=== PATIENT | female | born 1930 | race Caucasian/White ===

== ENCOUNTER 2019-02-04 11:50 | Inpatient (IN) | payer OTHER ==
[2019-02-04 12:56] LABS: PLATELET COUNT 191 10^3/uL (150-400)
[2019-02-04] MEDS ORDERED: AZITHROMYCIN IV 500 MG in NS 250 ML IV ONE (13:31)
--- NOTE | 2019-02-04 13:31 | EDPHY ---
H & P Stated Complaint: cough /sob had PNA a month ago/weakness Time Seen by Provider: 02/04/19 12:56 HPI/ROS: CHIEF COMPLAINT: Cough, fever Limitations: Dementia HISTORY OF PRESENT ILLNESS: 88-year-old female with diabetes presents with cough and fever. 1 month ago she was diagnosed with influenza and took a course of Tamiflu. Subsequently she was diagnosed with pneumonia and received a course of antibiotics. She was feeling well until yesterday, when she developed a recurrent fever and cough. Associated with oxygen saturation 80% on room air. She uses oxygen as needed but usually her oxygen saturation is in the mid 90s. This morning she was too weak to get out of bed. She usually walks with a walker. REVIEW OF SYSTEMS: complete 10 point ROS reviewed and is negative except for the noted elements in the HPI - Personal History Current Tetanus Diphtheria and Acellular Pertussis (TDAP): Yes - Medical/Surgical History Hx Asthma: No Hx Chronic Respiratory Disease: No Hx Diabetes: Yes Hx Cardiac Disease: No Hx Renal Disease: No Hx Cirrhosis: No Hx Alcoholism: No Hx HIV/AIDS: No Hx Splenectomy or Spleen Trauma: No Other PMH: htn diabetes r hip fx hysterectomy kidney stones - Social History Smoking Status: Former smoker Additional Social History: Lives with daughter and son-in-law - Physical Exam Exam: General Appearance: Alert, pleasant, nontoxic-appearing Eyes: Pupils equal and round, no conjunctival pallor or injection ENT, Mouth: Mucous membranes moist Neck: Normal inspection Respiratory: Rales at the right base Cardiovascular: Regular rate and rhythm Gastrointestinal: Abdomen is soft and nontender Neurological: Alert, nonfocal exam Skin: Warm and dry Extremities: Bilateral pedal edema, healing abrasion left lower leg, with slight erythema surrounding, no tenderness in this area Psychiatric: Mood and affect normal Constitutional: Initial Vital Signs Temperature (C) 37.1 C 02/04/19 11:56 Heart Rate 76 02/04/19 11:56 Respiratory Rate 18 02/04/19 11:56 Blood Pressure 137/60 H 02/04/19 11:56 O2 Sat (%) 98 02/04/19 11:56 O2 Delivery Mode Nasal Cannula O2 (L/minute) 2 Allergies/Adverse Reactions: No Known Allergies Allergy (Unverified 02/04/19 11:55) Home Medications: Medication Instructions Recorded Atorvastatin Calcium [Lipitor 20 20 mg PO HS 02/04/19 mg (*)] Furosemide [Lasix 20 MG (*)] 10 mg PO DAILY PRN 02/04/19 Lisinopril [Zestril 5 mg (*)] 5 mg PO DAILY 02/04/19 amLODIPine BESYLATE [Norvasc 10 mg 10 mg PO DAILY 02/04/19 (*)] metFORMIN HCL [Glucophage 500 mg 500 mg PO BIDMEAL 02/04/19 (*)] Medical Decision Making - Diagnostics EKG Interpretation: EKG interpreted by me reveals normal sinus rhythm, rate 70, low voltage in the limb leads, prolonged QT interval, slight ST segment depression in the lateral leads. Interpretation: Abnormal EKG Imaging Results: Chest X-Ray 02/04/19 12:48 Impression: 1. Right-sided alveolar opacities may reflect pneumonia or less likely asymmetric pulmonary edema. 2. Cardiomegaly and pulmonary venous redistribution suggest congestive failure. Imaging: I viewed and interpreted images myself ED Course/Re-evaluation: This patient presents with cough, hypoxia and fever. Oxygen saturation 95% on 2 L by nasal cannula. Does not meet SIRS criteria. Chest x-ray reveals a right -sided infiltrate, consistent with pneumonia. Rocephin and Zithromax IV given after blood cultures were drawn. Initial lactate is normal. Likely superimposed CHF, BNP ordered. EKG reveals no evidence of ischemia or dysrhythmia. The hospitalist service was consulted for admission. BNP is greater than 9000, consistent with congestive heart failure. No diuretics given in ED. Main problem is pneumonia, and clinical history suggestive of dehydration. BP stable throughout, consider diuretics as inpt. Differential Diagnosis: Differential diagnosis includes though it is not limited to pneumonia, pneumothorax, pulmonary embolism, aortic dissection, pericarditis, acute coronary syndrome. - Data Points Laboratory Results: Laboratory Results 02/04/19 12:45 02/04/19 12:45 Microbiology Results: MICROBIOLOGY 02/04/19 13:25 Nasal, Sinus - Swab Respiratory Panel (PCR) - Final No Organism Detected By Pcr Medications Given: Albuterol (Proventil Neb) 3 ml IH Q2HRS PRN PRN Reason: Short of Breath/Dyspnea Stop: 08/03/19 13:50 Last Admin: 02/04/19 17:02 Dose: 3 ml Atorvastatin Calcium (Lipitor) 20 mg PO HS PENNIE Stop: 08/03/19 20:59 Last Admin: 02/04/19 20:11 Dose: 20 mg Enoxaparin Sodium (Lovenox) 40 mg SC DAILY [facility] Stop: 08/04/19 08:59 Last Admin: 02/05/19 09:23 Dose: 40 mg Furosemide (Lasix Injection) 20 mg IVP DAILY [facility] Stop: 08/04/19 08:59 Last Admin: 02/05/19 09:23 Dose: 20 mg Guaifenesin (Mucinex) 600 mg PO BID PENNIE Stop: 08/03/19 13:59 Last Admin: 02/05/19 09:23 Dose: 600 mg Azithromycin 500 mg/ Sodium (Chloride) 255 mls @ 255 mls/hr IV DAILY PENNIE PRN Reason: Protocol Stop: 03/07/19 08:59 Last Admin: 02/05/19 12:07 Dose: 255 mls Ceftriaxone Sodium/Dextrose (Rocephin 1 Gm (Premix)) 50 mls @ 100 mls/hr IV DAILY PENNIE PRN Reason: Protocol Stop: 03/07/19 08:59 Last Admin: 02/05/19 10:21 Dose: 50 mls Insulin Human Lispro (Humalog Lispro) 0 unit SC TIDMEAL PENNIE PRN Reason: Protocol Stop: 08/03/19 17:59 Last Admin: 02/05/19 17:36 Dose: Not Given Lisinopril (Zestril) 5 mg PO DAILY [facility] Stop: 08/04/19 08:59 Last Admin: 02/05/19 09:23 Dose: 5 mg Discontinued Medications Furosemide (Lasix Injection) 20 mg IVP ONCE ONE Stop: 02/04/19 16:12 Last Admin: 02/04/19 17:07 Dose: 20 mg Azithromycin 500 mg/ Sodium (Chloride) 255 mls @ 255 mls/hr IV EDNOW ONE PRN Reason: Protocol Stop: 02/04/19 14:30 Last Admin: 02/04/19 14:30 Dose: 255 mls Ceftriaxone Sodium/Dextrose (Rocephin 1 Gm (Premix)) 50 mls @ 100 mls/hr IV EDNOW ONE PRN Reason: Protocol Stop: 02/04/19 14:00 Last Admin: 02/04/19 13:46 Dose: 50 mls Potassium Chloride (Klor-Con) 10 - 40 meq PO ONCE ONE PRN Reason: Protocol Stop: 02/04/19 19:43 Last Admin: 02/04/19 20:11 Dose: 10 meq Departure - Departure Disposition: [facility] Acute Clinical Impression: Pneumonia Qualifiers: Pneumonia type: due to unspecified organism Laterality: right Lung location: unspecified part of lung Qualified Code(s): J18.9 - Pneumonia, unspecified organism Acute exacerbation of congestive heart failure Qualifiers: Heart failure type: unspecified Qualified Code(s): I50.9 - Heart failure, unspecified Condition: Fair
[2019-02-04] MEDS ORDERED: GUAIFENESIN/DM 10 ML UDCUP PO PRN (13:50)
[2019-02-04] MEDS ORDERED: BENZONATATE 100 MG CAP PO PRN (13:51)
[2019-02-04] MEDS ORDERED: ACETAMINOPHEN 325 MG TAB PO PRN (13:51)
[2019-02-04] MEDS ORDERED: ALBUTEROL 3 ML DEYVIAL IH PRN (13:51)
[2019-02-04] MEDS ORDERED: ONDANSETRON 4 MG/2 ML VIAL IVP PRN (13:51)
[2019-02-04] MEDS ORDERED: ONDANSETRON DISINTEGRATING 4 MG TAB PO PRN (13:51)
[2019-02-04] MEDS ORDERED: D50W 25 GM/50 ML SYR IVP PRN (13:59)
[2019-02-04] MEDS: AZITHROMYCIN IV 500 MG in NS 250 ML IV SCH (14:13)
--- NOTE | 2019-02-04 15:50 | ASMTCMCOM ---
CM Note CM Note Notes: Reviewed chart. Pt presented to the Emergency Department with cough, worsening shortness of breath, decreased oxygen saturation. Pt was diagnosed with Influenza and PNA approximately one month ago. History includes DM, HTN, right hip fx, hysterectomy and kidney stones. Pt is . Her dghtr Martine is her emergency contact. Pt to be admitted for further evaluation and treatment. Discharge needs remain unclear at this time. CM will continue to follow. Discharge Plan: To be determined Date Signed: 02/04/2019 03:47 PM Electronically Signed By:Alana Gilliland RN
[2019-02-04] MEDS ORDERED: FUROSEMIDE 20 MG/2 ML VIAL IVP ONE (16:11)
[2019-02-04] MEDS ORDERED: PROTOCOL POTASSIUM 1 DOSE MISC PRN (16:12)
--- NOTE | 2019-02-04 16:23 | PDGENHP ---
History and Physical - Chief Complaint cough, SOB - History of Present Illness 88 yo female with h/o hypertension and diabetes with recent influenza who was treated with atbx for PNA presents to ED with cough and SOB. She is not sure if she has had fevers. She does endorse orthopnea and PND as well as LE edema. She has no known h/o HF or coronary disease. She thinks she had influenza ~1 month ago, but cannot recall when she completed her atbx. She denies CP or pressure, but is quite SOB. In the ED, she received IV Ceftriaxone and Azithromycin due to concern for PNA on CXR, which also showed b/l pleural effusions R>L. She is admitted for further management. History Information - Allergies/Home Medication List Allergies/Adverse Reactions: No Known Allergies Allergy (Unverified 02/04/19 11:55) Home Medications: Atorvastatin Calcium [Lipitor 20 mg (*)] 20 mg PO HS 02/04/19 [Last Taken ] Furosemide [Lasix 20 MG (*)] 10 mg PO DAILY PRN 02/04/19 [Last Taken Unknown] Lisinopril [Zestril 5 mg (*)] 5 mg PO DAILY 02/04/19 [Last Taken 02/04/19] amLODIPine BESYLATE [Norvasc 10 mg (*)] 10 mg PO DAILY 02/04/19 [Last Taken 09/15] metFORMIN HCL [Glucophage 500 mg (*)] 500 mg PO BIDMEAL 02/04/19 [Last Taken 09/15 AM] I have personally reviewed and updated: family history, medical history, social history, surgical history - Past Medical History diabetes type 2, hypertension Additional medical history: kidney stones - Surgical History Reports: hysterectomy - Family History Positive for: non-pertinent - Social History Smoking Status: Former smoker Alcohol Use: None Drug Use: None Additional social history: Lives with daughter and son-in-law Review of Systems Review of Systems: ROS: 10pt was reviewed & negative except for what was stated in HPI & below Physical Exam Physical Exam: Temp Pulse Resp BP Pulse Ox 37.1 C 80 18 135/70 H 92 02/04/19 11:56 02/04/19 15:47 02/04/19 15:47 02/04/19 15:47 02/04/19 15:47 O2 (L/minute) 2 Constitutional: no apparent distress Eyes: PERRL Ears, Nose, Mouth, Throat: moist mucous membranes Cardiovascular: regular rate and rhythym, JVD Respiratory: no respiratory distress, other (bibasilar crackles) Gastrointestinal: normoactive bowel sounds, soft, non-tender abdomen Skin: warm Musculoskeletal: full muscle strength, other (2+ b/l LE pitting edema) Neurologic: AAOx3 Psychiatric: interacting appropriately, poor memory Lab Data & Imaging Review 02/04/19 12:45 02/04/19 12:45 WBC 11.25 10^3/uL (3.80-9.50) H 02/04/19 12:45 RBC 3.56 10^6/uL (4.18-5.33) L 02/04/19 12:45 Hgb 10.0 g/dL (12.6-16.3) L 02/04/19 12:45 Hct 32.7 % (38.0-47.0) L 02/04/19 12:45 MCV 91.9 fL (81.5-99.8) 02/04/19 12:45 MCH 28.1 pg (27.9-34.1) 02/04/19 12:45 MCHC 30.6 g/dL (32.4-36.7) L 02/04/19 12:45 RDW 16.6 % (11.5-15.2) H 02/04/19 12:45 Plt Count 191 10^3/uL (150-400) 02/04/19 12:45 MPV 10.5 fL (8.7-11.7) 02/04/19 12:45 Neut % (Auto) 80.5 % (39.3-74.2) H 02/04/19 12:45 Lymph % (Auto) 11.6 % (15.0-45.0) L 02/04/19 12:45 Dane % (Auto) 7.3 % (4.5-13.0) 02/04/19 12:45 Eos % (Auto) 0.0 % (0.6-7.6) L 02/04/19 12:45 Baso % (Auto) 0.3 % (0.3-1.7) 02/04/19 12:45 Nucleat RBC Rel Count 0.0 % (0.0-0.2) 02/04/19 12:45 Absolute Neuts (auto) 9.07 10^3/uL (1.70-6.50) H 02/04/19 12:45 Absolute Lymphs (auto) 1.30 10^3/uL (1.00-3.00) 02/04/19 12:45 Absolute Monos (auto) 0.82 10^3/uL (0.30-0.80) H 02/04/19 12:45 Absolute Eos (auto) 0.00 10^3/uL (0.03-0.40) L 02/04/19 12:45 Absolute Basos (auto) 0.03 10^3/uL (0.02-0.10) 02/04/19 12:45 Absolute Nucleated RBC 0.00 10^3/uL (0-0.01) 02/04/19 12:45 Immature Gran % 0.3 % (0.0-1.1) 02/04/19 12:45 Immature Gran # 0.03 10^3/uL (0.00-0.10) 02/04/19 12:45 VBG Lactic Acid 1.4 mmol/L (0.7-2.1) 02/04/19 12:45 Sodium 135 mEq/L (135-145) 02/04/19 12:45 Potassium 4.4 mEq/L (3.5-5.2) 02/04/19 12:45 Chloride 106 mEq/L (97-110) 02/04/19 12:45 Carbon Dioxide 22 mEq/l (22-31) 02/04/19 12:45 Anion Gap 7 mEq/L (6-14) 02/04/19 12:45 BUN 14 mg/dL (7-23) 02/04/19 12:45 Creatinine 0.9 mg/dL (0.6-1.0) 02/04/19 12:45 Estimated GFR 59 02/04/19 12:45 Glucose 137 mg/dL (70-100) H 02/04/19 12:45 Calcium 8.7 mg/dL (8.5-10.4) 02/04/19 12:45 NT-Pro-B Natriuret Pep 9410 pg/mL (0-450) H 02/04/19 12:45 Procalcitonin 0.41 ng/mL (0.02-0.10) H 02/04/19 12:45 Visualized and Interpreted Chest x-ray results: Yes Chest X-Ray results: other (b/l effusions and b/l infiltrate vs edema) Visualized and Interpreted EKG results: Yes EKG Interpretation: Positive for: normal sinsus rhythm, ST depression Assessment & Plan Assessment: AHRF - pt presents with visible increased respiratory effort, on 2 LPM. Suspect this is mostly secondary to acute HF with b/l effusions, BNP 9K, +JVD, and LE edema. However, noting recent influenza and possible infiltrate on CXR, along with elevated PCT, will also treat for CAP. -IV Lasix now, cont 20 mg IV daily, may need repeat dose tonight if doesn't diurese with low dose (lasix naive) -monitor I&O's, daily weights -telemetry -check echo and TSH -IV Ceftriaxone and Azithromycin for possible PNA -BCx's pending, send sputum culture Acute HF - no known h/o HF, note mild ST depression on EKG, CP free -diuresis as above -telemetry -Likely warrants BB and/or Prakash if BP tolerates, await echo -trend troponin. Pt clearly states she would NOT want cardiac intervention such as heart cath -prn EKG if CP recurs -check TSH and echo DM type 2 - bg 100's on arrival, hold MTF for now -SSI Hypertension - Hold Amlodipine as BP may not tolerate with diuresis (SBP 120 on arrival to floor) -Cont lisinopril with hold parameters -Lasix as above DVT PPLX - Lovenox Code status - discussed with pt, she clearly states she wishes to be DNR/DNI, which will be honored Dispo - admit to inpt, anticipate >48 hrs hospitalization for ongoing management of acute HF, possible PNA and hypoxemia.
[2019-02-04] MEDS: guaiFENesin 600 MG TAB.ER PO SCH ×2 (17:08→20:11)
[2019-02-04] MEDS: INSULIN LISPRO 100 UNIT/ML SC SCH (19:15)
[2019-02-04] MEDS ORDERED: POTASSIUM CL 10 MEQ TAB PO ONE (19:42)
[2019-02-04] MEDS: ATORVASTATIN CALCIUM 20 MG TAB PO SCH (20:11)
--- NOTE | 2019-02-04 20:58 | CPEKG ---
Test Reason : OPEN Blood Pressure : / mmHG Vent. Rate : 070 BPM Atrial Rate : 070 BPM P-R Int : 133 ms QRS Dur : 097 ms QT Int : 482 ms P-R-T Axes : 018 029 033 degrees QTc Int : 521 ms Sinus rhythm Low voltage, extremity leads Borderline ST depression, lateral leads Prolonged QT interval Confirmed by Chaparrita Broussard ([id number]) on 02/04/2019 8:58:39 PM Referred By: CHAPARRITA BROUSSARD Confirmed By:Chaparrita Broussard
[2019-02-05 05:14] LABS: PLATELET COUNT 172 10^3/uL (150-400)
[2019-02-05] MEDS: INSULIN LISPRO 100 UNIT/ML SC SCH ×3 (08:46→17:36)
--- NOTE | 2019-02-05 09:11 | PDMN ---
Medical Necessity Medical necessity: Pt meets inpt criteria per MD ordr and MCG M-190, Heart Failure, A-2 days. 88 y/o w/hx of HTN and diabetes w/ recent influenza admitted with AHRF likely due to HF w/ bilat pleural effusions R>L, BNP 9K, +JVD, and LE edema, also possible PNA, requiring 2-4 L O2, IV ABX's, IV Lasix, tele, bl cultures pending, follow troponins (1st 2 were elevated), anticipate> 2MN for ongoing management of HF, hypoxemia, and possible PNA.
[2019-02-05] MEDS: FUROSEMIDE 20 MG/2 ML VIAL IVP SCH (09:23)
[2019-02-05] MEDS: guaiFENesin 600 MG TAB.ER PO SCH ×2 (09:23→20:16)
[2019-02-05] MEDS: LISINOPRIL 5 MG TAB PO SCH (09:23)
[2019-02-05] MEDS: ENOXAPARIN 40 MG/0.4 ML SYR SC SCH (09:23)
--- NOTE | 2019-02-05 11:18 | ECHO ---
[email or web address] [address] [address] Main: [phone] Echocardiography Examination Transthoracic Name: PRIYANKA CORONADO MR#: [id number] Study Date: 02/05/2019 Study Time: 07:50 AM Date of : 1930 Age: 88 year(s) Height: 154.9 cm (61 in.) Weight: 63.5 kg (140 lb.) BSA: 1.62 m2 Gender: Female Examination: Echo Contrast: Image Quality: Adequate Rhythm: Heart Rate: BP: / Indication: hypoxia, effusions, elevated bnp, LE edema Procedure Staff Referring Physician: Bundle Sorter: Heather Lambert RDCS Reading Physician: Jorge Camilo MD Requesting Provider: Indication: hypoxia, effusions, elevated bnp, LE edema Measurements Chambers AV/MV Label Value Normal Value Label Value Normal Value IVSd, 2D 1 cm (0.6cm - 1.1cm) AV PGmax 10 mmHg LVDd, 2D 5.6 cm (3.9cm - 5.3cm) AV PGmean 6 mmHg LVDs, 2D 4 cm (2.1cm - 4cm) AV Vmax, Curve 1.61 m/s LVEF, BP 58 % (55% - 70%) YONY D (continuity eq. 2.1 cm2 LVEF, MOD2 59 % (55% - 70%) VTI) LVEF, MOD4 58 % (55% - 70%) MR Defect Area (ERO) 0.46 cm2 LVOT PGmean 4 mmHg MR PISA Alias V. 61.6 cm/s LVOT Vmean 0.91 m/s MR PISA Radius 0.8 cm LVOTd 1.9 cm (1.8cm - 2cm) MR Reg. Volume 73 ml LVPWd, 2D 1 cm MR Vmax 5380 m/s RVDd, 2D 2.8 cm (1.9cm - 3.8cm) MR VTI 158 cm LA Area, A2C 25 cm2 (0cm2 - 20cm2) MV A Vmax 0.78 m/s LA Volume, A2C 87 ml (22ml - 52ml) MV DT 158 ms LADs, 2D 4.2 cm (2.7cm - 3.8cm) MV E' lateral 0.1 m/s Additional Vessels MV E' mean 0.1 m/s Label Value Normal Value MV E' septal 0.09 m/s AoAsc 2.8 cm MV E Vmax 1.45 m/s AoRoot, 2D 2.6 cm (1.4cm - 2.6cm) MV E/A 1.86 IVC 2.1 cm (1.2cm - 2.3cm) MV E/E' lateral 14.7 MV E/E' mean 15.26 Patient: PRIYANKA CORONADO Study Date: 02/05/2019 Page 1 of 3 07:50 AM MV E/E' septal 16.9 (0.45 - 1.25) MV PGmax 9 mmHg MV PGmean 4 mmHg MV PHT 0.04 s MV PHT 43 ms MV VTI 38.4 cm MVA D (continuity eq.) 1.6 cm2 MVA PHT 5.1 cm2 TV/PV Label Value Normal Value RA Pressure 5 mmHg RVSP 49 mmHg TR Pmax 44 mmHg TR Vmax 3.33 m/s PV PGmax 3 mmHg PV Vmax, Caliper 0.92 m/s (0.6m/s - 0.9m/s) Conclusions Left Ventricle: Left ventricle is normal in size. Normal global systolic left ventricular function. Grade II Diastolic Dysfunction. Right Ventricle: Normal size right ventricle. Right ventricular systolic function is normal. Left Atrium: The left atrium is severely dilated. Mitral Valve: Mitral valve appears structurally normal. Severe mitral regurgitation. No mitral valve stenosis. Aortic Valve: Aortic leaflets are structurally normal. There is no aortic stenosis. Aortic leaflets exhibit mild calcification. Tricuspid Valve: Right Ventricular systolic pressure is measured at 49 mmHg. Pulmonary artery pressure moderately increased. Findings Left Ventricle: Left ventricle is normal in size. Normal global systolic left ventricular function. The ejection fraction, measured by Simpsons method, is 58 %. EF range is estimated at 55 % - 60 %. Left ventricle wall thickness is normal. There is no regional wall motion abnormalities. Grade II Diastolic Dysfunction. IVS: The septum is intact. Patient: PRIYANKA CORONADO Study Date: 02/05/2019 Page 2 of 3 07:50 AM Right Ventricle: Normal size right ventricle. Right ventricular wall thickness is normal. Right ventricular systolic function is normal. Left Atrium: The left atrium is severely dilated. IAS: Normal appearing atrial septum. Right Atrium: The right atrium is normal in size. Mitral Valve: Mitral valve appears structurally normal. Severe mitral regurgitation. No mitral valve stenosis. Aortic Valve: Aortic leaflets are structurally normal. Trivial aortic regurgitation is present. There is no aortic stenosis. Aortic leaflets exhibit mild calcification. Tricuspid Valve: Tricuspid valve leaflets are structurally normal. Mild tricuspid regurgitation. No tricuspid valve stenosis. Right Ventricular systolic pressure is measured at 49 mmHg. Pulmonary artery pressure moderately increased. Pulmonic Valve: Pulmonic leaflets are structurally normal. Trivial pulmonic valve regurgitation is present. There is no pulmonic valve stenosis. Aorta: The aorta is normal. The aortic root size in 2D measures 2.6 cm. The ascending aorta measures 2.8 cm. Aorta Measurements AoRoot, 2D is 2.6 cm. Pulmonary Artery: The pulmonary artery morphology appears normal. IVC: The inferior vena cava is normal in size and course. Pericardium: A pericardial fat pad is present. Trivial pericardial effusion. No pleural effusion present. Exam Details Procedure Ordered: Echo Procedure Status: Routine study Image Quality: Adequate Facility Location: Cardiac Echo 1 (No Signature Object) Patient: PRIYANKA CORONADO Study Date: 02/05/2019 Page 3 of 3 07:50 AM [id number]
[2019-02-05] MEDS: AZITHROMYCIN IV 500 MG in NS 250 ML IV SCH (12:07)
--- NOTE | 2019-02-05 14:13 | HOSPPROG ---
Hospitalist Progress Note Assessment/Plan: AHRF - pt presented with visible increased respiratory effort, which is improved today. O2 needs 4 LPM --> 2 LPM. Suspect this is mostly secondary to acute HF with b/l effusions, BNP 9K, +JVD, and LE edema. Wt down 1.5 kg overnight. Inaccurate I&O's due to incontinence. Noting recent influenza and poss infiltrate on CXR, along with elevated PCT, also tx'ing for CAP. -cont IV Lasix 20 mg daily -monitor I&O's (as able), daily weights -cont telemetry -cont IV Ceftriaxone and Azithromycin for possible PNA -BCx's pending, RVP neg Acute dHF - no known h/o HF, note mild ST depression on EKG, CP free, mild trop elevated has trended down, suspect strain. Pt clearly states she would NOT want cardiac intervention such as heart cath. Echo showed grade 2 diastolic dysfunction. -diuresis as above -telemetry -cont Lisinopril -prn EKG if CP recurs -TSH nl, echo reviewed, see below Severe MR - likely contributory to HF. Again, pt is not interested in surgical intervention or procedures. -cardiology consult requested DM type 2 - bg 100's on arrival, holding MTF for now -cont SSI Hypertension - Holding Amlodipine for now as BP may not tolerate with diuresis ( SBP 120 on arrival to floor) -Cont lisinopril with hold parameters -Lasix as above DVT PPLX - Lovenox Code status - discussed with pt, she clearly states she wishes to be DNR/DNI, which will be honored Dispo - cont inpt for ongoing management of acute HF, possible PNA and hypoxemia. PT/OT recommending home care. Subjective: Pt feels much better. Breathing is improved. She is less orthopneic, decreased LE edema. No CP or SOB. No fevers/chills. Coughing less. Objective: Vital Signs Temp Pulse Resp BP Pulse Ox 37.2 C 80 16 124/65 H 90 L 02/05/19 11:29 02/05/19 11:29 02/05/19 11:29 02/05/19 11:29 02/05/19 11:29 Laboratory Results 02/05/19 04:25 02/05/19 04:25 02/04/19 02/05/1919 05:59 05:59 05:59 Intake Total 300 Output Total 400 400 Balance -400 -100 - Physical Exam Constitutional: no apparent distress Eyes: PERRL Ears, Nose, Mouth, Throat: moist mucous membranes Cardiovascular: JVD Respiratory: no respiratory distress, inspiratory crackles Gastrointestinal: normoactive bowel sounds, soft, non-tender abdomen Skin: warm Musculoskeletal: full muscle strength, other (1-2+ b/l LE pitting edema) Neurologic: AAOx3 Psychiatric: interacting appropriately ICD10 Worksheet Patient Problems: Problems Problem Status Onset Acute diastolic heart failure Acute - ICD10 Problem Qualifiers (1) Acute diastolic heart failure
[2019-02-05] MEDS: ATORVASTATIN CALCIUM 20 MG TAB PO SCH (20:16)
[2019-02-06] MEDS: AZITHROMYCIN IV 500 MG in NS 250 ML IV SCH (08:05)
[2019-02-06] MEDS: guaiFENesin 600 MG TAB.ER PO SCH ×2 (08:06→21:11)
[2019-02-06] MEDS: ENOXAPARIN 40 MG/0.4 ML SYR SC SCH (08:06)
[2019-02-06] MEDS: FUROSEMIDE 20 MG/2 ML VIAL IVP SCH (08:06)
[2019-02-06] MEDS: INSULIN LISPRO 100 UNIT/ML SC SCH ×3 (09:08→18:46)
[2019-02-06] MEDS: LISINOPRIL 5 MG TAB PO SCH (09:18)
[2019-02-06] MEDS ORDERED: POTASSIUM CL 10 MEQ TAB PO ONE ×2 (10:55→19:49)
--- NOTE | 2019-02-06 11:13 | HOSPPROG ---
Hospitalist Progress Note Assessment/Plan: AHRF - pt presented with visible increased respiratory effort, which is improved today. O2 needs 4 LPM --> 2 LPM. 87% on room air challenge today. Suspect this is mostly secondary to acute HF with b/l effusions, BNP 9K, +JVD, and LE edema. Wt down 1 kg, LE edema and JVD improving. Inaccurate I&O's due to incontinence. Noting recent influenza and poss infiltrate on CXR, along with elevated PCT, also tx'ing for CAP. -cont IV Lasix 20 mg daily -monitor I&O's (as able), daily weights -cont telemetry -cont IV Ceftriaxone and Azithromycin for possible PNA (rpt cxr today pers reviewed/interp, improved RLL consolidation, still some pulm edema) -BCx's ngtd, RVP neg Acute dHF - new diagnosis, mild ST depression on EKG, CP free, mild trop elevated has trended down, suspect strain. Pt clearly states she would NOT want cardiac intervention such as heart cath. Echo showed grade 2 diastolic dysfunction. -diuresis as above -telemetry -cont Lisinopril -prn EKG if CP recurs -TSH nl, echo reviewed, see below Severe MR - likely contributory to HF. Again, pt is not interested in surgical intervention or procedures. -cardiology to consult DM type 2 - bg 100's on arrival, holding MTF for now -cont SSI Hypertension - Holding Amlodipine for now as BP may not tolerate with diuresis ( SBP 120 on arrival to floor) -Cont lisinopril -Lasix as above DVT PPLX - Lovenox Code status - DNR/DNI Dispo - cont inpt for ongoing management of acute HF, possible PNA and hypoxemia. PT/OT recommending home care. She still has O2 requirement, possible d/c in am if doing ok on room air. Could consider d/c'ing with home O2 , but I suspect she is close to resolving her O2 requirement. Subjective: Pt feels better each day. No CP, less SOB and less orthopneic. LE edema improved. She is weak, hasn't ambulated much. No fevers/chills. Still coughing a bit. Objective: Vital Signs Temp Pulse Resp BP Pulse Ox 36.4 C 85 16 144/74 H 93 02/06/19 08:00 02/06/19 08:00 02/06/19 08:00 02/06/19 09:18 02/06/19 08:00 Laboratory Results 02/05/19 04:25 02/06/19 05:37 02/05/19 02/06/19 02/07/19 05:59 05:59 05:59 Intake Total 1400 Output Total 400 675 200 Balance -400 725 -200 - Physical Exam Constitutional: no apparent distress Eyes: PERRL Ears, Nose, Mouth, Throat: moist mucous membranes Cardiovascular: regular rate and rhythym, other (JVD improved) Respiratory: no respiratory distress, other (faint bibasilar crackles, also improved) Gastrointestinal: normoactive bowel sounds, soft, non-tender abdomen Skin: warm Musculoskeletal: full muscle strength, other (1+ b/l LE edema, much improved) Neurologic: AAOx3 Psychiatric: interacting appropriately ICD10 Worksheet Patient Problems: Problems Problem Status Onset Acute diastolic heart failure Acute Acute exacerbation of congestive heart failure Acute Pneumonia Acute - ICD10 Problem Qualifiers (1) Acute diastolic heart failure
--- NOTE | 2019-02-06 14:59 | ASMTCMCOM ---
CM Note CM Note Notes: Pt to discharge home with home health care PT/OT. [facility] has accepted. Contact is son in law Sheldon and [facility] is aware. Pt likely to discharge tomorrow. Address confirmed. CM to follow. D/C Plan: [facility] PT/OT Date Signed: 02/06/2019 02:58 PM Electronically Signed By:Katharine Zuluaga
--- NOTE | 2019-02-06 16:48 | PDCARCONS ---
Cardiology Consult Reason for Consult: Severe MR with admission for CHF Chief Complaint: Dyspnea Requesting Physician: Hospitalist team History of Present Illness: Patient is an 88 y/o female with history of severe mitral regurgitation (a relatively new diagnosis given her lack of outpatient follow up in the past), diastolic CHF, HTN, and DM, who presents to ER with complaints of dyspnea, PND, and orthopnea. Recent diagnosis and treatment of influenza (about one month ago ). No cardiovascular complaints of chest pains or pressure. No current complaints of fevers or chills. Dyspnea, reportedly rather severe at the time of admission, is improved. Given the echo findings of "severe" mitral regurgitation, surgery was mentioned, but the patient (currently a DNR), voiced no desire to follow this path. Hold on outpatient antihypertensive therapy has resulted in mild increase in blood pressures noted. Diuresis (IV lasix) has had the most effect with signs and symptom improvement. Daughter was present in the room with the patient today, and provided some insight into the patient' s desires given a degree of dementia. Admission in [place] after fall and pelvic fracture, but according to the patient, no one has mentioned any "valve" issues in the past. 12 point review of systems was unremarkable (outside of that which was mentioned in the HPI above). History Information - Allergies/Home Medication List Allergies/Adverse Reactions: No Known Allergies Allergy (Unverified 02/04/19 11:55) Home Medications: Atorvastatin Calcium [Lipitor 20 mg (*)] 20 mg PO HS 02/04/19 [Last Taken ] Furosemide [Lasix 20 MG (*)] 10 mg PO DAILY PRN 02/04/19 [Last Taken Unknown] Lisinopril [Zestril 5 mg (*)] 5 mg PO DAILY 02/04/19 [Last Taken 02/04/19] amLODIPine BESYLATE [Norvasc 10 mg (*)] 10 mg PO DAILY 02/04/19 [Last Taken 09/15] metFORMIN HCL [Glucophage 500 mg (*)] 500 mg PO BIDMEAL 02/04/19 [Last Taken 09/15 AM] I have personally reviewed and updated: family history, medical history, social history, surgical history Past Medical History: - Past Medical History CHF, diabetes type 2, hypertension - Surgical History Reports: no pertinent surgical hx - Family History Positive for: non-pertinent - Social History Smoking Status: Former smoker Alcohol Use: None Drug Use: None Cardiac History - Cardiac History Past Cardiac History: OTHER (mitral regurgitation) Cardiac Risk Factors: hypertension (>140/90), diabetes mellitus, age > 65 Timing/Duration: Weeks Severity: moderate Severity Scale: 7 Location: substernal Activities at Onset: activity Modifying Factors: improves with: breathing, exercise, lying down, oxygen, rest Associated Symptoms: shortness of breath, weakness Physical Exam Physical Exam: Temp Pulse Resp BP Pulse Ox 36.6 C 76 18 138/75 H 92 02/06/19 11:30 02/06/19 11:30 02/06/19 11:30 02/06/19 11:30 02/06/19 14:49 O2 (L/minute) 1 Constitutional: no apparent distress, chronically ill appearing, obese Eyes: PERRL, EOMI Ears, Nose, Mouth, Throat: moist mucous membranes Cardiovascular: regular rate and rhythym, systolic murmur, JVD, pulses symmetric bilaterally, No edema Peripheral Pulses: 2+: dorsalis-pedis (R), dorsalis-pedis (L) Respiratory: reduced air movement, inspiratory crackles, dullness to percussion Gastrointestinal: normoactive bowel sounds Skin: warm, No rash Musculoskeletal: no muscle tenderness, normal joint ROM Neurologic: AAOx3, CN II-XII Intact Psychiatric: interacting appropriately, not anxious, poor insight, poor memory Lab and Imaging 02/05/19 04:25 02/06/19 05:37 WBC 9.82 10^3/uL (3.80-9.50) H 02/05/19 04:25 RBC 3.28 10^6/uL (4.18-5.33) L 02/05/19 04:25 Hgb 9.4 g/dL (12.6-16.3) L 02/05/19 04:25 Hct 30.7 % (38.0-47.0) L 02/05/19 04:25 MCV 93.6 fL (81.5-99.8) 02/05/19 04:25 MCH 28.7 pg (27.9-34.1) 02/05/19 04:25 MCHC 30.6 g/dL (32.4-36.7) L 02/05/19 04:25 RDW 16.4 % (11.5-15.2) H 02/05/19 04:25 Plt Count 172 10^3/uL (150-400) 02/05/19 04:25 MPV 11.3 fL (8.7-11.7) 02/05/19 04:25 Neut % (Auto) 68.8 % (39.3-74.2) 02/05/19 04:25 Lymph % (Auto) 16.2 % (15.0-45.0) 02/05/19 04:25 [place] % (Auto) 12.5 % (4.5-13.0) 02/05/19 04:25 Eos % (Auto) 1.9 % (0.6-7.6) 02/05/19 04:25 Baso % (Auto) 0.2 % (0.3-1.7) L 02/05/19 04:25 Nucleat RBC Rel Count 0.0 % (0.0-0.2) 02/05/19 04:25 Absolute Neuts (auto) 6.75 10^3/uL (1.70-6.50) H 02/05/19 04:25 Absolute Lymphs (auto) 1.59 10^3/uL (1.00-3.00) 02/05/19 04:25 Absolute Monos (auto) 1.23 10^3/uL (0.30-0.80) H 02/05/19 04:25 Absolute Eos (auto) 0.19 10^3/uL (0.03-0.40) 02/05/19 04:25 Absolute Basos (auto) 0.02 10^3/uL (0.02-0.10) 02/05/19 04:25 Absolute Nucleated RBC 0.00 10^3/uL (0-0.01) 02/05/19 04:25 Immature Gran % 0.4 % (0.0-1.1) 02/05/19 04:25 Immature Gran # 0.04 10^3/uL (0.00-0.10) 02/05/19 04:25 VBG Lactic Acid 1.4 mmol/L (0.7-2.1) 02/04/19 12:45 Sodium 139 mEq/L (135-145) 02/06/19 05:37 Potassium 3.9 mEq/L (3.5-5.2) 02/06/19 05:37 Chloride 106 mEq/L (97-110) 02/06/19 05:37 Carbon Dioxide 24 mEq/l (22-31) 02/06/19 05:37 Anion Gap 9 mEq/L (6-14) 02/06/19 05:37 BUN 19 mg/dL (7-23) 02/06/19 05:37 Creatinine 1.0 mg/dL (0.6-1.0) 02/06/19 05:37 Estimated GFR 52 02/06/19 05:37 Glucose 120 mg/dL (70-100) H 02/06/19 05:37 POC Glucose 117 mg/dL (70-100) H 02/06/19 11:33 Calcium 8.5 mg/dL (8.5-10.4) 02/06/19 05:37 Troponin I 0.043 ng/mL (0.000-0.034) H 02/04/19 22:00 NT-Pro-B Natriuret Pep 7910 pg/mL (0-450) H 02/06/19 05:37 Procalcitonin 0.41 ng/mL (0.02-0.10) H 02/04/19 12:45 TSH 1.890 uIU/mL (0.465-4.680) 02/04/19 12:45 Chest X-ray Interpretation: other (right sided opacities with dilated cardiac sihouette) Visualized and Interpreted EKG results: Yes EKG Interpretation: Positive for: normal sinsus rhythm (with QTc prolongation noted) Echocardiogram: normal LVEF, severe LAE, severe MR, mild TR RVSP was 50 mm Hg. Diastolic dysfunction was present A/P Assessment: Patient is an 88 y/o female with a past history of HTN and DM type II who was admitted for acute respiratory failure, acute dCHF, and severe MR (found on Echo from 02/05/19). In the past month, she has been ill with influenza, then pneumonia, and then again prior to admission she felt weak with a dry cough and fever. Increased orthopnea and LE edema over the past few weeks. No chest pain or palpitations. Diuresis with IV therapy has led to some improvement in symptoms (per patient and daughter). No desire to pursue surgical intervention of the mitral valve. Hold on outpatient antihypertensive therapy has allowed use of IV diuretics, but blood pressure has increased (off ACEi and CCB therapy) . BNP levels have dropped since admission. Patient is DNR. Plan: Discussion about palliative care/hospice with patient today given her severe valve pathology, diastolic heart failure, and desire to avoid surgical interventions (with DNR imposed). Would continue diuresis as at present given improvement in symptoms with this therapy (but there has not been a substantial drop in weights noted). Trial on low dose beta blockers (12.5 mg of metoprolol tartrate) to assist with blood pressure control as well as some drop in heart rate (which would assist with LV filling in the setting of diastolic dysfunction ). Cardiology will continue to follow this patient over hospital stay.
[2019-02-06] MEDS: ATORVASTATIN CALCIUM 20 MG TAB PO SCH (21:11)
[2019-02-07] MEDS: INSULIN LISPRO 100 UNIT/ML SC SCH (08:16)
[2019-02-07 08:43] VITALS: BP 154/77
[2019-02-07] MEDS: LISINOPRIL 5 MG TAB PO SCH (09:13)
[2019-02-07] MEDS: guaiFENesin 600 MG TAB.ER PO SCH (09:13)
[2019-02-07] MEDS: AZITHROMYCIN IV 500 MG in NS 250 ML IV SCH (09:13)
[2019-02-07] MEDS: FUROSEMIDE 20 MG/2 ML VIAL IVP SCH (09:13)
[2019-02-07] MEDS: ENOXAPARIN 40 MG/0.4 ML SYR SC SCH (09:13)
--- NOTE | 2019-02-08 14:02 | ASMTLACE ---
LACE Length of stay for Answers: 4-6 days current admission Acuity / Level of Answers: Yes Care: Did the patient have an inpatient admission? Comorbidities - select Answers: Diabetes (uncontrolled or all that apply controlled) Other Notes: HTN, R hip fx, hysterectomy, kidne y stone # of Emergency department Answers: 1-2 visits in the last 6 months Score: 10 Date Signed: 02/08/2019 02:01 PM Electronically Signed By:Renetta Celaya RN
--- NOTE | 2019-02-08 14:06 | ASMTDCNOTE ---
Case Management Discharge Discharge Order Complete? Answers: Yes Patient to Obtain Answers: via Family Medications Transportation Arranged Answers: Family/Friends Faxed Final Orders Answers: Yes Family Notified Answers: Yes Discharge Comments Notes: D/w MD, final orders faxed today via fax machine as fax didn't go through yesterday. Mercedes at [facility] notified. Date Signed: 02/08/2019 02:05 PM Electronically Signed By:Renetta Celaya RN
--- NOTE | 2019-02-08 16:09 | ASDISCHSUM ---
Discharge Information Plan Status:Home with Home Health Medically Cleared to Leave:02/07/2019 Discharge Date:02/07/2019 02:17 PM CM D/C Disposition: ADT D/C Disposition:Home, Routine, Self-Care Projected Discharge Date:02/07/2019 11:00 AM Transportation at D/C: Discharge Delay Reason: Follow-Up Date:02/07/2019 11:00 AM Discharge Slot: Final Diagnosis: Placement Information Referral Type:*Home Health Care Services Referral ID:[id number] Provider Name:[facility] Address 1:[address] [place] [address] Address 2: City:[place] Selection Factors: State:[place] Patient Contact Information Contact Name:OXANA Relationship:Daughter Address: Work Phone: City: [facility] Phone: [facility] Code: Email: Financial Information Financial Class:Medicare Advantage Plans Primary Plan Desc:[facility] [employer] Primary Plan Number:[id number] Secondary Plan Desc: Secondary Plan Number: Assessment Information LACE LACE Length of stay for Answers: 4-6 days current admission Acuity / Level of Answers: Yes Care: Did the patient have an inpatient admission? Comorbidities - select Answers: Diabetes (uncontrolled or all that apply controlled) Other Notes: HTN, R hip fx, hysterectomy, kidne y stone # of Emergency department Answers: 1-2 visits in the last 6 months Score: 10 Date Signed: 02/08/2019 02:01 PM Electronically Signed By:Renetta Celaya RN [facility] CM Progress Note CM Note CM Note Notes: Reviewed chart. Pt presented to the Emergency Department with cough, worsening shortness of breath, decreased oxygen saturation. Pt was diagnosed with Influenza and PNA approximately one month ago. History includes DM, HTN, right hip fx, hysterectomy and kidney stones. Pt is . Her dghtr Martine is her emergency contact. Pt to be admitted for further evaluation and treatment. Discharge needs remain unclear at this time. CM will continue to follow. Discharge Plan: To be determined Date Signed: 02/04/2019 03:47 PM Electronically Signed By:Alana Gilliland RN [facility] CM Progress Note CM Note CM Note Notes: Pt to discharge home with home health care PT/OT. [facility] has accepted. Contact is son in law Chung and [facility] is aware. Pt likely to discharge tomorrow. Address confirmed. CM to follow. D/C Plan: [facility] PT/OT Date Signed: 02/06/2019 02:58 PM Electronically Signed By:Katharine Zuluaga Case Management Discharge Plan Note Case Management Discharge Discharge Order Complete? Answers: Yes Patient to Obtain Answers: via Family Medications Transportation Arranged Answers: Family/Friends Faxed Final Orders Answers: Yes Family Notified Answers: Yes Discharge Comments Notes: [employer], final orders faxed today via fax machine as fax didn't go through yesterday. Mercedes at [facility] notified. Date Signed: 02/08/2019 02:05 PM Electronically Signed By:Renetta Celaya, RN Intervention Information
--- NOTE | 2019-03-15 12:43 | GDS ---
[f rep st] DISCHARGE SUMMARY SERVICE: [facility] hospitalist. CONSULTS: Cardiology. PROCEDURES: 1. Echocardiogram which showed normal LV function, EF 58%, normal wall thickness grade 2 diastolic dysfunction, normal RV, severely dilated left atrium , normal right atrium, severe mitral regurg, no mitral valve stenosis, no aortic stenosis, trivial aortic regurg, mild tricuspid regurg, no tricuspid stenosis, pulmonary artery pressure slightly elevated, normal aorta, normal IVC , no effusion. 2. Chest x-ray on the day of admission showed bilateral alveolar opacities, greater on the right side, peribronchial thickening, cardiomegaly, bilateral pleural effusions greater on the right side. 3. Chest x-ray on 02/06, showed mild decrease in right basilar consolidation, otherwise similar to previous. HISTORY AND PHYSICAL: Please see previously dictated note by Dr. Carrasco. ADMISSION DIAGNOSES: 1. Acute hypoxic respiratory failure. 2. Acute heart failure. 3. Type 2 diabetes. 4. Hypertension. 5. Do not resuscitate/do not intubate status DISCHARGE DIAGNOSES: 1. Acute hypoxic respiratory failure, improved/stable 2. Acute heart failure, improved/stable 3. Type 2 diabetes. 4. Hypertension. 5. Do not resuscitate/do not intubate status .. 6. Cognitive impairment, on SLUMS. 7. End-stage valvular disease (see echocardiogram results as above). 8. Anemia HOSPITAL COURSE: The patient came into the emergency department because of worsening cough and a new fever. She had influenza approximately a month ago and a subsequent pneumonia afterwards. She finished a course of outpatient antibiotics and was feeling better, but then began to redevelop a fever and cough. She was noted to have an O2 saturation of 80% on room air and felt very weak, so came into the emergency department for evaluation. She had a chest x- ray as described above. Temperature of 37.1, and O2 saturation in the upper 90s while on 2 L of O2. She was started on IV azithromycin and Rocephin after blood cultures were drawn. She did not meet SIRS criteria and had a normal lactate. She had a BNP over 9000. She was admitted for further treatment and evaluation. Cardiology was asked to see her, and an echocardiogram was done as above. She was continued on antibiotics, pulmonary toilet, O2, and some gentle diuretics. Her blood pressure medications were adjusted also. Dr. Maher reviewed the echocardiogram and discussed palliative/hospice care with the patient as she declined any surgical intervention. She could be started on a low dose of a beta david to help with symptomology as an outpatient. She continued to need oxygen throughout her stay but was stable with 2 L of O2. She remained afebrile throughout her stay. Blood pressures ranged from the 120s to 150s over 50s to 90s. Physical Therapy was asked to evaluate her because of some concerns about weakness. She has a good support system locally , and it was recommended that she could continue outpatient rehab and home health care. She did have some initially slightly elevated troponins initially , felt to be secondary to the heart dysfunction. TSH was normal. Metabolic panel was normal with a normal creatinine of 0.9 to 1.0. Blood sugars were followed throughout her stay, and they were consistently less than 200. BNP was rechecked, and it was decreased to 7910. She had anemia at admission- discharge hemoglobin of 9.4, slightly elevated white count of 9.8, which was decreased from admission, and a normal platelet count. Blood culture was negative, and a respiratory panel was also negative. On the day of discharge, she felt stronger and able to return home with home health care and family assistance. Family was in agreement with this plan. DISCHARGE INSTRUCTIONS/MEDICATIONS: She is to continue with a regular diet. Medications whole with liquids and thin liquids. No change to her chronic medications was made. In brief, Norvasc, Lipitor, Lasix, Zestril, and Glucophage. Consideration can be made to adding beta david as an outpatient for symptom management per Cardiology recommendations if able. She has been asked to follow up with her primary care provider within a few days of discharge , and home health care should report back to her primary care provider. It has been recommended that she and her family consider palliative and hospice care given severity of valvular heart disease. /[id number]/MODL MTDD
== END 2019-02-07 14:17 | disposition home health service (06) | DRG 291 ==
LOC: F3E 15:58
PROVIDERS: ADMIT Hospitalist; ATTEND Hospitalist
DX: I50.31 Acute diastolic (congestive) heart failure (principal); J96.01 Acute respiratory failure with hypoxia; J18.9 Pneumonia, unspecified organism; E11.9 Type 2 diabetes mellitus without complications; I34.0 Nonrheumatic mitral (valve) insufficiency; I11.0 Hypertensive heart disease with heart failure; F03.90 Unspecified dementia, unspecified severity, without behavioral disturbance, psychotic disturbance, mood disturbance, and anxiety; Z66 Do not resuscitate; Z87.891 Personal history of nicotine dependence; Z51.5 Encounter for palliative care
CPT/HCPCS: 92523-GN; 92610-GN; 96365; 97116-GP; 97162-GP; 97166-GO; J0456; J0696; J1650; J1940; J7613